=== PATIENT | male | born 1990 | race Two or more races ===

== ENCOUNTER 2024-04-18 16:00 | Inpatient (IN) | payer OTHER ==
[2024-04-18] MEDS ORDERED: ONDANSETRON 4 MG/2 ML VIAL ONE ×2 (17:58→19:31)
[2024-04-18 18:00] LABS: LYMPH % 7.9 % (8-40); RDW 15.3 % (11.9-15.9); WHITE BLOOD COUNT 8.2 K/mm3 (4.0-10.0)
[2024-04-18 18:02] LABS: BASO % 0.3 % (0-2.0); MCH 24.1 pg (25.7-33.7); MCHC 31.9 g/dl (32.0-35.9); MEAN CELL VOLUME 75.6 fl (80-96); MEAN PLT VOLUME 8.3 fl (7.5-11.1); MONO % 5.2 % (3.8-10.2); NEUT % 86.6 % (42.8-82.8); PLATELET COUNT 312 10^3/uL (134-434); RBC 5.82 M/mm3 (4.00-5.60)
[2024-04-18] MEDS: SODIUM CHLORIDE 1,000 ML IV STA (18:04)
[2024-04-18] MEDS: ONDANSETRON 4 MG/2 ML VIAL IVPB ONE (18:04)
[2024-04-18] MEDS ORDERED: ACETAMINOPHEN INJECTION 100 ML ONE (18:07)
[2024-04-18] MEDS ORDERED: FAMOTIDINE 20 MG/50 ML IVPB 20 MG/50 ML MG IVPB ONE (18:07)
[2024-04-18] MEDS: FAMOTIDINE 20 MG/50 ML IVPB 20 MG/50 ML MG IVPB ONE (18:12)
[2024-04-18] MEDS: ACETAMINOPHEN 1000 MG/100 ML BAG IVPB ONE (18:12)
[2024-04-18 18:30] LABS: POTASSIUM 4.5 mmol/L (3.5-5.1)
[2024-04-18 18:32] LABS: ALBUMIN 4.8 g/dl (3.4-5.0); BLOOD UREA NITROGEN 12.2 mg/dL (7-18); CALCIUM 10.2 mg/dL (8.5-10.1)
[2024-04-18 18:35] LABS: CREATININE 1.2 mg/dL (0.55-1.3)
[2024-04-18 18:37] LABS: BILIRUBIN,TOTAL 0.4 mg/dL (0.2-1); TOT PROT 7.7 g/dl (6.4-8.2)
[2024-04-18 18:46] LABS: LACTIC ACID 3.3 mmol/L (0.4-2.0)
[2024-04-18] MEDS ORDERED: PHENYTOIN SODIUM 250 MG/5 ML VIAL IVPB ONE (19:27)
[2024-04-18] MEDS: ONDANSETRON 4 MG/2 ML VIAL IVPUSH ONE (19:37)
[2024-04-18] MEDS ORDERED: METOCLOPRAMIDE HCL INJECTION 10 MG/2 ML VIAL ONE (21:22)
[2024-04-18] MEDS: METOCLOPRAMIDE HCL INJECTION 10 MG/2 ML VIAL IVPB ONE (21:35)
[2024-04-18] MEDS: FOSPHENYTOIN SODIUM 200 MG in SODIUM CHLORIDE 100 ML IVPB ONE (21:36)
[2024-04-18] MEDS ORDERED: FOSPHENYTOIN SODIUM 100 MG/2 ML VIAL ONE (21:39)
[2024-04-18] MEDS: FOSPHENYTOIN SODIUM 100 MG/2 ML VIAL IVPB ONE (22:02)
[2024-04-19 02:13] LABS: LACTIC ACID 3.1 mmol/L (0.4-2.0)
[2024-04-19] MEDS: SODIUM CHLORIDE 1,000 ML IV SCH (04:32)
[2024-04-19 05:21] LABS: LACTIC ACID 2.5 mmol/L (0.4-2.0)
[2024-04-19] MEDS: ONDANSETRON 4 MG/2 ML VIAL IVPUSH PRN (05:41)
[2024-04-19] MEDS ORDERED: levETIRAcetam XR 750 MG TAB PO SCH (10:00)
[2024-04-19] MEDS: lamoTRIgine 100 MG TABLET PO SCH (10:09)
[2024-04-19] MEDS: levETIRAcetam XR 750 MG TAB PO SCH (10:09)
[2024-04-19] MEDS: ENOXAPARIN NA (PORCINE) 40 MG/0.4 ML DISP.SYRIN SQ SCH (10:10)
[2024-04-19 10:43] LABS: BASO % 0.3 % (0-2.0); HEMATOCRIT 44.1 % (35.4-49); HEMOGLOBIN 13.9 GM/dL (11.7-16.9); LYMPH % 11.1 % (8-40); MCHC 31.5 g/dl (32.0-35.9); MEAN CELL VOLUME 76.2 fl (80-96); NEUT % 76.6 % (42.8-82.8); PLATELET COUNT 229 10^3/uL (134-434); RBC 5.78 M/mm3 (4.00-5.60); RDW 15.2 % (11.9-15.9); WHITE BLOOD COUNT 9.9 K/mm3 (4.0-10.0)
[2024-04-19 11:08] LABS: POTASSIUM 3.8 mmol/L (3.5-5.1)
[2024-04-19 11:13] LABS: CALCIUM 10.1 mg/dL (8.5-10.1)
[2024-04-19 11:16] LABS: ALBUMIN 4.5 g/dl (3.4-5.0)
[2024-04-19 11:17] LABS: BLOOD UREA NITROGEN 13.3 mg/dL (7-18); MAGNESIUM 2.1 mg/dL (1.8-2.4)
[2024-04-19 11:20] LABS: PHOSPHOROUS 1.9 mg/dL (2.5-4.9)
[2024-04-19 11:21] LABS: BILIRUBIN,TOTAL 0.6 mg/dL (0.2-1)
[2024-04-19 11:22] LABS: TOT PROT 7.2 g/dl (6.4-8.2)
[2024-04-19] MEDS ORDERED: PIPERACILLIN/TAZOB 2.25 GM 2.25 GM in DEXTROSE 5%-WATER - 50 ML IVPB SCH (16:45)
[2024-04-19] MEDS: METOCLOPRAMIDE HCL INJECTION 10 MG/2 ML VIAL IVPUSH PRN (17:04)
[2024-04-19] MEDS: PIPERACILLIN/TAZOB 2.25 GM 2.25 GM/50 ML BAG IVPB SCH (17:39)
[2024-04-19] MEDS: LACTATED RINGERS SOLUTION 1,000 ML/1,000 ML INFUS.BAG IV SCH (17:39)
[2024-04-19 21:59] LABS: EPI CELLS 6 /uL (0-25.1); HYALINE CASTS 1 /uL (0-3.1); PH,URINE 5.5 (5.0-8.0); URINE APPEARANCE CLOUDY; URINE BACTERIA 6 /uL (0-1359); URINE BILIRUBIN NEGATIVE (NEGATIVE); URINE COLOR YELLOW; URINE GLUCOSE (UA) NEGATIVE (NEGATIVE); URINE KETONE TRACE (NEGATIVE); URINE LEUK ESTERASE NEGATIVE (NEGATIVE); URINE NITRITE NEGATIVE (NEGATIVE); URINE PROTEIN 1+ (NEGATIVE); URINE RBC 18 /uL (0-23.9); URINE UROBILINOGEN 0.2 mg/dL (0.2-1.0); URINE WBC 16 /uL (0-25.8)
[2024-04-19 22:17] LABS: URINE BARBITURATES NEGATIVE (NEGATIVE)
[2024-04-19 22:19] LABS: COCAINE, UR NEGATIVE (NEGATIVE); URINE AMPHETAMINES NEGATIVE (NEGATIVE); URINE BENZODIAZEPINES NEGATIVE (NEGATIVE)
[2024-04-19 22:20] LABS: METHADONE, UR NEGATIVE (NEGATIVE); PHENCYCLIDINE,URINE NEGATIVE (NEGATIVE)
[2024-04-19 22:21] LABS: OPIATES, URI NEGATIVE (NEGATIVE)
[2024-04-20 09:57] LABS: BASO % 0.2 % (0-2.0); HEMOGLOBIN 13.7 GM/dL (11.7-16.9); LYMPH % 16.2 % (8-40); MCH 24.5 pg (25.7-33.7); MCHC 32.6 g/dl (32.0-35.9); MEAN CELL VOLUME 75.3 fl (80-96); MEAN PLT VOLUME 8.8 fl (7.5-11.1); MONO % 12.7 % (3.8-10.2); NEUT % 70.9 % (42.8-82.8); PLATELET COUNT 248 10^3/uL (134-434); RBC 5.58 M/mm3 (4.00-5.60); RDW 15.1 % (11.9-15.9)
[2024-04-20 10:34] LABS: POTASSIUM 3.7 mmol/L (3.5-5.1)
[2024-04-20 10:54] LABS: ALBUMIN 4.4 g/dl (3.4-5.0); BLOOD UREA NITROGEN 14.9 mg/dL (7-18); CALCIUM 9.9 mg/dL (8.5-10.1); MAGNESIUM 2.2 mg/dL (1.8-2.4)
[2024-04-20 10:57] LABS: CREATININE 1.1 mg/dL (0.55-1.3)
[2024-04-20 10:59] LABS: BILIRUBIN,TOTAL 0.7 mg/dL (0.2-1); TOT PROT 7.3 g/dl (6.4-8.2)
[2024-04-20] MEDS: PIPERACILLIN/TAZOB 3.375 GM 50 ML IVPB SCH (17:08)
[2024-04-20] MEDS: ACETAMINOPHEN 325 MG TABLET (FP) PO ONE (18:07)
[2024-04-21 08:54] LABS: BASO % 0.5 % (0-2.0); EOS % 0.2 % (0-4.5); HEMOGLOBIN 14.3 GM/dL (11.7-16.9); MCH 24.4 pg (25.7-33.7); MCHC 32.4 g/dl (32.0-35.9); MEAN CELL VOLUME 75.4 fl (80-96); MEAN PLT VOLUME 8.8 fl (7.5-11.1); NEUT % 54.3 % (42.8-82.8); PLATELET COUNT 217 10^3/uL (134-434); RBC 5.84 M/mm3 (4.00-5.60); WHITE BLOOD COUNT 8.5 K/mm3 (4.0-10.0)
[2024-04-21 09:12] LABS: POTASSIUM 3.8 mmol/L (3.5-5.1)
[2024-04-21 09:19] LABS: CALCIUM 9.7 mg/dL (8.5-10.1)
[2024-04-21 09:20] LABS: ALBUMIN 4.2 g/dl (3.4-5.0); BLOOD UREA NITROGEN 13.6 mg/dL (7-18); MAGNESIUM 2.1 mg/dL (1.8-2.4)
[2024-04-21 09:23] LABS: CREATININE 1.1 mg/dL (0.55-1.3)
[2024-04-21 09:25] LABS: TOT PROT 6.8 g/dl (6.4-8.2)
[2024-04-21 15:10] VITALS: BMI 23.4
[2024-04-22 05:26] VITALS: RESP 19
[2024-04-22 09:21] LABS: BASO % 0.5 % (0-2.0); EOS % 0.4 % (0-4.5); HEMATOCRIT 47.1 % (35.4-49); HEMOGLOBIN 15.5 GM/dL (11.7-16.9); LYMPH % 42.1 % (8-40); MCH 24.6 pg (25.7-33.7); MCHC 32.8 g/dl (32.0-35.9); MEAN CELL VOLUME 74.9 fl (80-96); MEAN PLT VOLUME 8.4 fl (7.5-11.1); MONO % 12.6 % (3.8-10.2); NEUT % 44.4 % (42.8-82.8); PLATELET COUNT 221 10^3/uL (134-434); RBC 6.29 M/mm3 (4.00-5.60); RDW 14.9 % (11.9-15.9); WHITE BLOOD COUNT 6.2 K/mm3 (4.0-10.0)
[2024-04-22 09:54] LABS: POTASSIUM 3.7 mmol/L (3.5-5.1)
[2024-04-22 10:41] LABS: ALBUMIN 4.4 g/dl (3.4-5.0); BLOOD UREA NITROGEN 15.7 mg/dL (7-18); CALCIUM 9.7 mg/dL (8.5-10.1); MAGNESIUM 2.4 mg/dL (1.8-2.4)
[2024-04-22 10:46] LABS: BILIRUBIN,TOTAL 1.3 mg/dL (0.2-1); TOT PROT 7.1 g/dl (6.4-8.2)
[2024-04-22 11:17] VITALS: BP 122/84; PULSE 81; TEMP 97.8
== END 2024-04-22 11:21 | disposition home or self-care (01) | DRG 445 ==
LOC: JER 16:00 → JERBED 04-19 02:02 → J7W 04-19 04:48 → OBSVTOIN 04-19 14:28
PROVIDERS: ADMIT Internal Medicine
DX: K81.1 Chronic cholecystitis (principal); E87.20 Acidosis, unspecified; G40.909 Epilepsy, unspecified, not intractable, without status epilepticus; F79 Unspecified intellectual disabilities; R10.13 Epigastric pain; E86.0 Dehydration; K83.8 Other specified diseases of biliary tract; R11.2 Nausea with vomiting, unspecified
CPT/HCPCS: 0241U-QW; 36415; 71046-TC-FY; 74176-TC; 76705-TC; 78226-TC; 80053; 80185; 80307; 81003; 83605; 83690; 83735; 84100; 84484; 85025; 87086; 93005; 93010; 99285-25; A9537; G0378; J0131

== ENCOUNTER 2024-08-23 13:14 | Emergency (ER) | payer OTHER ==
[2024-08-23 13:47] VITALS: RESP 18; BMI 22.1
[2024-08-23 13:49] VITALS: TEMP 97.9
[2024-08-23] MEDS ORDERED: levETIRAcetam 500 MG/5 ML INJECTION VIAL IVPB ONE (14:09)
[2024-08-23] MEDS ORDERED: lamoTRIgine 100 MG TABLET ONE (14:09)
[2024-08-23] MEDS: levETIRAcetam 500 MG/5 ML INJECTION VIAL IVPB ONE (14:26)
[2024-08-23 15:40] VITALS: BP 118/74; PULSE 78
== END 2024-08-23 16:33 | disposition home or self-care (01) ==
LOC: JER 13:14
PROC: 3E033GC Introduction of Other Therapeutic Substance into Peripheral Vein, Percutaneous Approach (ICD-10-PCS; principal; 2024-08-23)
DX: G40.909 Epilepsy, unspecified, not intractable, without status epilepticus (principal); R94.31 Abnormal electrocardiogram [ECG] [EKG]; Z91.148 Patient's other noncompliance with medication regimen for other reason
CPT/HCPCS: 93005; 93010; 99284-25

== ENCOUNTER 2024-11-12 15:18 | Emergency (ER) | payer OTHER ==
[2024-11-12 15:26] VITALS: RESP 20; TEMP 97.8
[2024-11-12] MEDS ORDERED: levETIRAcetam 500 MG TABLET (FP) PO ONE (16:28)
[2024-11-12] MEDS ORDERED: levETIRAcetam 500 MG/5 ML INJECTION VIAL IVPB ONE (16:53)
[2024-11-12 17:03] LABS: ABSOLUTE IMMATURE GRANULOCYTES 0.28 x10^3/uL (0.0-0.031); BASOPHILS # 0.04 x10^3/uL (0.01-0.08); EOSINOPHIL % 0.1 % (0.8-7.0); EOSINOPHILS # 0.01 x10^3/uL (0.04-0.54); MCHC 30.4 g/dl (32.3-36.5); MEAN CELL VOLUME 77.4 fl (79.0-92.2); MEAN PLT VOLUME 9.6 fl (9.4-12.4); MONOCYTE # 0.83 x10^3/uL (0.30-0.82); MONOCYTE % 9.7 % (5.3-12.2); RDW 15.6 % (12.0-15.6)
[2024-11-12] MEDS: levETIRAcetam 500 MG/5 ML INJECTION VIAL IVPB ONE (17:16)
[2024-11-12 17:27] LABS: EPI CELLS 7 /uL (0-25.1); HYALINE CASTS 1 /uL (0-3.1); URINE APPEARANCE CLEAR; URINE BACTERIA 9 /uL (0-1359); URINE BILIRUBIN NEGATIVE (NEGATIVE); URINE COLOR YELLOW; URINE GLUCOSE (UA) NEGATIVE (NEGATIVE); URINE KETONE NEGATIVE (NEGATIVE); URINE LEUK ESTERASE NEGATIVE (NEGATIVE); URINE NITRITE NEGATIVE (NEGATIVE); URINE PROTEIN 1+ (NEGATIVE); URINE RBC 14 /uL (0-23.9); URINE UROBILINOGEN 0.2 mg/dL (0.2-1.0); URINE WBC 16 /uL (0-25.8)
[2024-11-12 17:35] LABS: CO2 20.0 mmol/L (21-32)
[2024-11-12 17:36] LABS: GLUCOSE,RANDOM 87.0 mg/dL (74-106)
[2024-11-12 17:38] LABS: SGPT/ALT 24.0 U/L (13-61)
[2024-11-12 17:39] LABS: CREATININE 1.1 mg/dL (0.55-1.3); SGOT/AST 29.0 U/L (15-37)
[2024-11-12 17:40] LABS: TOT PROT 7.2 g/dl (6.4-8.2)
[2024-11-12 17:41] LABS: ALK PHOS 86.0 U/L (45-117)
[2024-11-12 19:03] VITALS: BP 116/72; PULSE 60
== END 2024-11-12 19:49 | disposition home or self-care (01) ==
LOC: JER 15:18
PROC: 3E033GC Introduction of Other Therapeutic Substance into Peripheral Vein, Percutaneous Approach (ICD-10-PCS; principal; 2024-11-12)
DX: G40.909 Epilepsy, unspecified, not intractable, without status epilepticus (principal); R94.31 Abnormal electrocardiogram [ECG] [EKG]
CPT/HCPCS: 36415; 70450-TC; 71045-TC-FY; 72125-TC; 80053; 80177; 81003; 82962; 83735; 85025; 93005; 93010; 96374; 99285-25